=== PATIENT | female | born 1985 | race Caucasian/White ===

== ENCOUNTER 2019-09-15 21:33 | Emergency (ER) | payer OTHER ==
[~2019-09-15] VITALS: Ht 157.5 cm; Wt 40.1 kg
[2019-09-15] MEDS ORDERED: MIDAZOLAM INJ 2 MG/2 ML VIAL (J2250) As Ordered ONE ×2 (22:19→22:40)
[2019-09-15 22:31] LABS: BASO # 0.1 10^3/uL (0.0-0.2); BASO % 1.1 % (0.0-1.0); EOS % 0.4 % (0.0-3.0); HEMATOCRIT 39.4 % (36.0-47.0); HEMOGLOBIN 11.5 g/dl (12.0-15.5); LYMPH # 2.1 10^3/uL (1.5-5.0); LYMPH % 37.1 % (24.0-44.0); MEAN CORPUSCULAR HEMOGLOBIN 24.1 pg (27.0-33.0); MEAN CORPUSCULAR HGB CONC 29.2 g/dl (32.0-36.5); MEAN CORPUSCULAR VOLUME 82.4 fl (80.0-96.0); MONO # 0.8 10^3/uL (0.0-0.8); MONO % 14.6 % (0.0-5.0); NEUTROPHILS # 2.7 10^3/uL (1.5-8.5); NEUTROPHILS % 46.4 % (36.0-66.0); PLATELET COUNT, AUTOMATED 254 10^3/uL (150-450); RED BLOOD COUNT 4.78 10^6/uL (4.00-5.40); WHITE BLOOD COUNT 5.7 10^3/uL (4.0-10.0)
[2019-09-15 22:34] LABS: AMPHETAMINES LEVEL URINE NEGATIVE (NEGATIVE); BARBITURATES URINE NEGATIVE (NEGATIVE); BENZODIAZEPINES URINE NEGATIVE (NEGATIVE); CANNABINOIDS URINE NEGATIVE (NEGATIVE); COCAINE METABOLITE URINE NEGATIVE (NEGATIVE); METHADONE URINE NEGATIVE (NEGATIVE); OPIATES URINE NEGATIVE (NEGATIVE); PHENCYCLIDINE URINE NEGATIVE (NEGATIVE)
[2019-09-15] MEDS ORDERED: MIDAZOLAM INJ 2 MG/2 ML VIAL (J2250) IV STA ×4 (22:39→23:18)
[2019-09-15] MEDS ORDERED: NS 1,000 ML IV ONE (22:45)
[2019-09-15 22:50] LABS: HCG, SERUM QUALITATIVE NEGATIVE (NEGATIVE)
[2019-09-15 23:02] LABS: ACETAMINOPHEN LEVEL < 2.0 UG/ML (10.0-30.0); ALBUMIN 3.8 GM/DL (3.2-5.2); ALT/SGPT 55 U/L (12-78); BILIRUBIN,DIRECT 0.1 MG/DL (0.0-0.2); BILIRUBIN,TOTAL 0.4 MG/DL (0.2-1.0); BLOOD UREA NITROGEN 5 MG/DL (7-18); CALCIUM LEVEL 9.5 MG/DL (8.5-10.1); CARBON DIOXIDE LEVEL 26 MEQ/L (21-32); CHLORIDE LEVEL 100 MEQ/L (98-107); CK-MB VALUE MASS < 1.0 NG/ML (<3.6); CPK CREATINE PHOSPHOKINASE 39 U/L (26-192); CREATININE FOR GFR 0.72 MG/DL (0.55-1.30); ETHYL ALCOHOL (ETHANOL) 0.343 % (0.000-0.010); GLOMERULAR FILTRATION RATE > 60.0 (>60); GLUCOSE, FASTING 107 MG/DL (70-100); MB/CK RELATIVE INDEX 2.56 (< OR =4); POTASSIUM SERUM 3.3 MEQ/L (3.5-5.1); SALICYLATE LEVEL < 1.7 MG/DL (5.0-30.0); SODIUM LEVEL 142 MEQ/L (136-145); THYROID STIMULATING HORMONE 0.965 uIU/ML (0.358-3.740); TOTAL PROTEIN 7.3 GM/DL (6.4-8.2); TROPONIN I < 0.02 NG/ML (< 0.10)
[2019-09-15] MEDS ORDERED: LORazepam 2 MG TAB PO PRN (23:15)
--- NOTE | 2019-09-16 00:14 | REPVR ---
PROCEDURE INFORMATION: Exam: CT Head Without Contrast Exam date and time: 09/15/2019 9:41 PM Age: 34 years old Clinical history: Altered mental status/memory loss TECHNIQUE: Imaging protocol: Computed tomography of the head without contrast. Axial and coronal reformatted images were created and reviewed. Radiation optimization: All CT scans at this facility use at least one of these dose optimization techniques: automated exposure control; mA and/or kV adjustment per patient size (includes targeted exams where dose is matched to clinical indication); or iterative reconstruction. COMPARISON: CT Head without contrast 01/31/2015 2:35 AM FINDINGS: Brain: No CT evidence of acute intracranial hemorrhage or acute territorial infarction. No significant mass effect or midline shift. Basal cisterns patent. Ventricles: Prominence of the cortical sulci, cisterns and ventricular system, consistent with cerebral and cerebellar volume loss. Bones/joints: No acute osseous abnormality. Sinuses: Mild ethmoid mucosal thickening. Mastoid air cells: Grossly unremarkable. Soft tissues: Grossly unremarkable. IMPRESSION: 1. No CT evidence of acute intracranial pathology. 2. Additional findings, as above. Electronically signed by: Anthony Sarmiento On 09/16/2019 00:14:05 AM
[2019-09-16] MEDS ORDERED: METAL LOCK LOOP XX ONE (02:18)
[2019-09-16 04:03] VITALS: BP 108/60
[2019-09-16] MEDS ORDERED: MULTIVITAMINS/MINERALS THERAP 1 TAB PO SCH (09:00)
[2019-09-16] MEDS ORDERED: THIAMINE 100 MG TAB PO SCH (09:00)
[2019-09-16] MEDS ORDERED: FOLIC ACID 1 MG TAB PO SCH (09:00)
--- NOTE | 2019-09-16 22:05 | ECGEPIP ---
[facility] - ED Test Date: 2019-09-15 Pat Name: DORA MAN Department: Room: - Gender: Female Recenterer: sb : 1985 Requested By: Clifton Mccormack Order Number: [id number] Reading MD: Ana Lilia Henao Measurements Intervals [place] Rate: 111 P: 71 TN: 156 QRS: 51 QRSD: 89 T: 20 QT: 357 QTc: 486 Interpretive Statements SINUS TACHYCARDIA ABNORMAL RHYTHM ECG NSTTW abnormalities INCREASED RATE 02/01/15 Electronically Signed on 09-16-2019 22:04:57 EST by Ana Lilia Henao
== END 2019-09-16 04:08 | disposition home or self-care (01) ==
LOC: M ED 21:33 → EDBD 21:33 → M ED 09-16 04:08
DX: F10.120 Alcohol abuse with intoxication, uncomplicated (principal); R00.0 Tachycardia, unspecified; F32.9 Major depressive disorder, single episode, unspecified
CPT/HCPCS: 70450; 80048; 80076; 80307; 82550; 82553; 84443; 84484; 84703; 85025; 93005; 93041; 94760; 96374; 96376; 99285; G0480; J2250

== ENCOUNTER 2020-10-21 18:37 | Inpatient (IN) | payer OTHER ==
[~2020-10-21] VITALS: Ht 162.6 cm; Wt 41.6 kg
--- OUTSIDE RECORDS SUMMARY | 2020-10-21 18:44 | CCD ---
Author Author [facility] Organization [facility] Address Unknown Phone Unavailable Care Team Providers Care [employer] Specialist Name Role Phone Joi Lal MD Unavailable Unavailable Juan Luis Marcus NP Unavailable Unavailable Leeann Kearns MD Unavailable Unavailable Re-disclosure Warning The records that you are about to access may contain information from federally-assisted alcohol or drug abuse programs. If such information is present, then the following federally mandated warning applies: This information has been disclosed to you from records protected by federal confidentiality rules (42 CFR part 2). The federal rules prohibit you from making any further disclosure of this information unless further disclosure is expressly permitted by the written consent of the person to whom it pertains or as otherwise permitted by 42 CFR part 2. A general authorization for the release of medical or other information is NOT sufficient for this purpose. The Federal rules restrict any use of the information to criminally investigate or prosecute any alcohol or drug abuse patient.The records that you are about to access may contain highly sensitive health information, the redisclosure of which is protected by Article 27-F of the [facility] Public Health law. If you continue you may have access to information: Regarding HIV / AIDS; Provided by facilities licensed or operated by the [facility] Office of Mental Health; or Provided by the [facility] Office for People With Developmental Disabilities. If such information is present, then the following [facility] mandated warning applies: This information has been disclosed to you from confidential records which are protected by state law. State law prohibits you from making any further disclosure of this information without the specific written consent of the person to whom it pertains, or as otherwise permitted by law. Any unauthorized further disclosure in violation of state law may result in a fine or prison sentence or both. A general authorization for the release of medical or other information is NOT sufficient authorization for further disc losure. Encounters Encounter Providers Location Date Indications Data Source(s ) Inpatient Attender: Fany Lal MDAdmitter: Fany Lal MDReferrer: Ambrosio Kearns MDConsultant: Edmund Marcus NP [id number]-[id number] 12/18/2018 11:26:00 AM EDT - 12/20/2018 02:50:00 PM EDT [facility] Insurance Providers Payer name Policy type / Coverage type Policy ID Covered democrat ID Covered democrat's relationship to chappell Policy Chappell Plan Information 'S ADMINISTRATION [id number] SP [id number] [facility] [id number] Other [id number] 1 OTHER B [id number] Self [id number] [place] - NON VA CARE [id number] SP [id number] [place] - [place] CARE [id number] SP [id number] [facility] [id number] FA [id number] [facility] [id number] FA [id number] [facility] B [id number] Self [id number] OTHER B [id number] Self [id number]
--- OUTSIDE RECORDS SUMMARY | 2020-10-21 19:48 | CCD ---
Author Author [facility] Organization [facility] Address Unknown Phone Unavailable Care Team Providers Care Business Mail Entry Clerk Name Role Phone Joi Lal MD Unavailable [...] is protected by Article 27-F of the [facility] Public Health law. If you continue you may have access to information: Regarding HIV / AIDS; Provided by facilities licensed or operated by the [facility] Office of Mental Health; or Provided by the [facility] Office for People With Developmental Disabilities. If such information is present, then the following [facility] mandated warning applies: This information has [...] law may result in a fine or assisted sentence or both. A general authorization for the release of medical or other information is NOT sufficient authorization for further disc losure. Encounters Encounter Providers Location Date Indications Data Source(s ) Inpatient Attender: Fany Lal MDAdmitter: Fany Lal MDReferrer: Ambrosio Kearns MDConsultant: Edmund Marcus NP [id number] 12/18/2018 11:26:00 AM EDT - 12/20/2018 02:50:00 PM EDT [facility] Insurance Providers Payer name Policy type / Coverage type Policy ID Covered alliance party ID Covered alliance party's relationship to chappell Policy Chappell Plan Information 'S ADMINISTRATION [id number] SP [id number] [facility] [id number] Other [id number] 1 OTHER B [id number] Self [id number] [place] - NON VA CARE [id number] SP [id number] [place] - [place] CARE [id number] SP [id number] [facility] [id number] FA [id number] [facility] [id number] FA [id number] [facility] B [id number] Self [id number] OTHER B [id number] Self [id number]
[2020-10-21 20:19] LABS: BASO % 0.3 % (0.0-1.0); EOS # 0.1 10^3/uL (0.0-0.5); EOS % 0.8 % (0.0-3.0); LYMPH # 2.1 10^3/uL (1.5-5.0); LYMPH % 28.6 % (24.0-44.0); MEAN CORPUSCULAR HEMOGLOBIN 14.2 pg (27.0-33.0); MEAN CORPUSCULAR HGB CONC 23.9 g/dl (32.0-36.5); MEAN CORPUSCULAR VOLUME 59.6 fl (80.0-96.0); MONO # 0.8 10^3/uL (0.0-0.8); MONO % 10.8 % (0.0-5.0); NEUTROPHILS # 4.4 10^3/uL (1.5-8.5); NEUTROPHILS % 59.2 % (36.0-66.0); PLATELET COUNT, AUTOMATED 429 10^3/uL (150-450); RED BLOOD COUNT 3.02 10^6/uL (4.00-5.40); WHITE BLOOD COUNT 7.4 10^3/uL (4.0-10.0)
[2020-10-21 20:23] LABS: HEMOGLOBIN 4.3 g/dl (12.0-15.5)
[2020-10-21 20:30] LABS: INR 1.06
[2020-10-21 20:31] LABS: PARTIAL THROMBOPLASTIN TIME 29.7 SECONDS (24.2-38.5)
[2020-10-21 20:39] LABS: BLOOD UREA NITROGEN 15 MG/DL (7-18); CALCIUM LEVEL 8.7 MG/DL (8.5-10.1); CARBON DIOXIDE LEVEL 28 MEQ/L (21-32); CHLORIDE LEVEL 104 MEQ/L (98-107); CREATININE FOR GFR 0.64 MG/DL (0.55-1.30); GLOMERULAR FILTRATION RATE > 60.0 (>60); GLUCOSE, FASTING 101 MG/DL (70-100); POTASSIUM SERUM 4.3 MEQ/L (3.5-5.1); SODIUM LEVEL 141 MEQ/L (136-145)
--- NOTE | 2020-10-21 21:23 | HPEPDOC ---
[facility] Medical History & Physical Date of Admission Oct 21, 2020 Date of Service: Oct 21, 2020 Other Provider Elmo Fajardo MD Attending Physician: LELAND WONG MD History and Physical TIME OF SERVICE: 11:36 PM CHIEF COMPLAINT: Abnormal blood work HISTORY OF PRESENT ILLNESS: This 35-year-old had routine blood work [facility] today; shortly thereafter she received a phone call and was told to come to the hospital because her "red blood cell count was low." Because she doesn't have a car, her father who lives in [facility], drove to the area in order to transport her to the hospital. She has been feeling dizzy and short of breath especially when she walks. She denies having chest pain, feeling weaker than usual, vomiting blood, or having heavy menstrual cycles. Her last menstrual cycle was several months. Her weight has been stable over the last few months. Per Dr. Morse stool occult was negative in the ER & PRBCs have been ordered. REVIEW OF SYSTEMS: 12 point review of systems negative except as listed in HPI PAST MEDICAL/ SURGICAL HISTORY: Remote history of seizure disorder "Lung scar" Hx of Depression SOCIAL HISTORY: [place] Is on disability because of the "lung scar" Lives in a motel and uses a cooker to prepare most of her meals FAMILY HISTORY: She denies any family history of blood disorders ALLERGIES: Please see below. HOME MEDICATIONS: Please see below. PHYSICAL EXAMINATION: Vital Signs Date Time Temp Pulse Resp B/P (MAP) Pulse Ox O2 Delivery O2 Flow Rate FiO2 10/21/20 18:37 99.4 121 22 102/67 (79) 97 Room Air GEN: Slim build/ well developed/ NAD INTEGUMENT: has generalized palor HEENT: EOMI CVS: RRR/NMRG / radial pulses intact LUNGS: able to speak full sentences without stopping to take a breath / no coughing / lungs are clear to auscultation bilaterally on room air ABDOMEN: Contour (flat ) / soft & not tender with palpation MSK/EXTREMITIES: NCAT / range of motion intact in all 4 extremities NEURO: CN 2-12 are grossly intact / speech is not dysarthric PSYCH: alert and oriented to person place and time/ able to understand and follow all commands LABORATORY DATA: 10/21/20 20:06 Immature Granulocyte % (Auto) 0.3, Neutrophils (%) (Auto) 59.2, Lymphocytes (%) (Auto) 28.6, Monocytes (%) (Auto) 10.8H, Eosinophils (%) (Auto) 0.8, Basophils (%) (Auto) 0.3, Neutrophils # (Auto) 4.4, Lymphocytes # (Auto) 2.1, Monocytes # (Auto) 0.8, Eosinophils # (Auto) 0.1, Basophils # (Auto) 0.0, Nucleated Red Blood Cells % (auto) 0.0, Prothrombin Time 14.0, Prothromb Time International Ratio 1.06, Activated Partial Thromboplast Time 29.7, Anion Gap 9, Glomerular Filtration Rate > 60.0, Calcium Level 8.7 IMAGING: n/a MICROBIOLOGY: Please see below. ASSESSMENT: Ms. Ruiz is a 35-year-old was sent [place] [facility] for management of acute anemia. PLAN: 1. Acute hypochromic microcytic anemia. Suspect she has JOAO +/- copper deficiency due to malnutrition Plan: admit to medical floor / pending iron studies & confirmation that she doesn't have an infection, the day time team may consider starting Venofer / f/u retic #, serum copper & stool occult / will aim for Hg >7 2. SIRS Initial HR 121 & RR 22 Likely reactive Plan: f/u lactic acid / monitor vitals if she has a fever or leucocytosis will order blood cx 3. Protein calorie malnutrition Plan: business process engineer consult DVT PROPHYLAXIS: SCDs DISPOSITION: home after more than 2 midnight's stay /PFS consult has been placed for d/c planning Home Medications No Active Prescriptions or Reported Meds Allergies Coded Allergies: No Known Allergies (Unverified , 09/15/19) A-FIB/CHADSVASC A-FIB History Current/History of A-Fib/PAF?: No Current PO Anticoag Therapy: No LELAND WONG MD Oct 21, 2020 21:23
--- OUTSIDE RECORDS SUMMARY | 2020-10-21 21:29 | CCD ---
Author Author [facility] Organization [facility] Address Unknown Phone Unavailable Care Team Providers Care [facility] Professional Name Role Phone Joi Lal MD Unavailable [...] is protected by Article 27-F of the [facility] Public Health law. If you continue you may have access to information: Regarding HIV / AIDS; Provided by facilities licensed or operated by the [facility] Office of Mental Health; or Provided by the [facility] Office for People With Developmental Disabilities. If such information is present, then the following [facility] mandated warning applies: This information has [...] law may result in a fine or mcfp sentence or both. A general authorization for the release of medical or other information is NOT sufficient authorization for further disc losure. Encounters Encounter Providers Location Date Indications Data Source(s ) Inpatient Attender: Fany Lal MDAdmitter: Fany Lal MDReferrer: Ambrosio Kearns MDConsultant: Edmund Marcus NP [id number]-[id number] 12/18/2018 11:26:00 AM EDT - 12/20/2018 02:50:00 PM EDT [facility] Insurance Providers Payer name Policy type / Coverage type Policy ID Covered libertarian ID Covered libertarian's relationship to chappell Policy Chappell Plan Information 'S ADMINISTRATION [id number] SP [id number] [facility] [id number] Other [id number] 1 OTHER B [id number] Self [id number] VA - NON VA CARE [id number] SP [id number] [place] - NON VA CARE [id number] SP [id number] [facility] [id number] FA [id number] [facility] [id number] FA [id number] [facility] B [id number] Self [id number] OTHER B [id number] Self [id number]
[2020-10-21] MEDS ORDERED: MOM 30ML SUSPENSION UDC PO PRN (21:30)
[2020-10-21] MEDS ORDERED: ACETAMINOPHEN TAB 650MG DOSE (2X325MG) PO PRN (21:30)
[2020-10-21] MEDS ORDERED: MAALOX 30 ML SUSP *UDC PO PRN (21:30)
[2020-10-21 21:32] VITALS: BP 107/67
[2020-10-21 21:34] LABS: RSV AMPLIFICATION NEGATIVE (NEGATIVE)
[2020-10-21 21:49] VITALS: BP 112/68
[2020-10-21 22:17] LABS: FERRITIN 3 NG/ML (8-252); IRON (FE) 6 UG/DL (50-170); PERCENT SATURATION 1.3 % (13.2-45.0); TOTAL IRON BINDING CAPACITY 475 UG/DL (250-450)
[2020-10-21 22:26] LABS: FOLATE 7.3 NG/ML (>5.4); VITAMIN B12 LEVEL 454 PG/ML (247-911)
[2020-10-21 22:34] VITALS: BP 111/66
[2020-10-21 23:11] VITALS: BP 104/64
[2020-10-21 23:27] VITALS: BP 101/59
[2020-10-22] VITALS (12 sets, daily range): BP systolic 94–124; BP diastolic 57–84
[2020-10-22 10:10] LABS: HEMATOCRIT 33.8 % (36.0-47.0); MEAN CORPUSCULAR HEMOGLOBIN 21.9 pg (27.0-33.0); MEAN CORPUSCULAR HGB CONC 30.5 g/dl (32.0-36.5); MEAN CORPUSCULAR VOLUME 71.9 fl (80.0-96.0); WHITE BLOOD COUNT 6.3 10^3/uL (4.0-10.0)
[2020-10-22 10:19] LABS: HEMOGLOBIN 10.3 g/dl (12.0-15.5); PLATELET COUNT, AUTOMATED 295 10^3/uL (150-450)
[2020-10-22 10:36] LABS: BLOOD UREA NITROGEN 11 MG/DL (7-18); CALCIUM LEVEL 8.3 MG/DL (8.5-10.1); CARBON DIOXIDE LEVEL 25 MEQ/L (21-32); CHLORIDE LEVEL 109 MEQ/L (98-107); CREATININE FOR GFR 0.69 MG/DL (0.55-1.30); GLOMERULAR FILTRATION RATE > 60.0 (>60); GLUCOSE, FASTING 99 MG/DL (70-100); POTASSIUM SERUM 4.1 MEQ/L (3.5-5.1); SODIUM LEVEL 140 MEQ/L (136-145)
[2020-10-22] MEDS ORDERED: IRON SUCROSE 100MG 5ML VIAL (J1756 PER 1MG) IV SCH (12:30)
[2020-10-22] MEDS: PANTOPRAZOLE 40MG TAB (PROTONIX) PO SCH ×2 (13:01→20:45)
--- NOTE | 2020-10-22 13:18 | IPNPDOC ---
Text Note Date of Service The patient was seen on 10/22/20. NOTE Subjective: Patient seen and examined at bedside. She notes intermittent dysphagia, no clear correlation with any instigating foods or factors. She is somewhat poor historian. She also denies any vaginal bleeding, stating she has not had a period in over a year. She also notes fatigue, malaise. Objective: General: NAD, lying comfortably in bed HEENT: NC/AT, EOMI, PERRL Lungs; CTA B/L Heart: +S1S2, RRR Abd: soft, NT, +BS Ext: no edema A/P: 35 female comes to hospital after found to be anemic during routine blood work at [place]. Admitted for symptomatic anemia. Found to be severely iron deficient. #symptomatic anemia - transfuse PRBC - severe iron deficiency - transfuse IV iron - d/w hematology - c/s pending - further w/u pending - thyroid profile, liver profile, LDH, haptoglobin, stool occult blood #eval for bleed/mass - ct chest/abd/pelvis pending - notes dyphagia - gi c/s pending for EGD/colonoscopy - clear liquid diet for now #Protein calorie malnutrition - supplier quality manager consult #DVT prophylaxis - mechanical VS,Fishbone, I+O VS, Fishbone, I+O Laboratory Tests 10/21/20 20:06 10/22/20 01:04 10/22/20 09:58 10/22/20 11:53 Vital Signs Date Time Temp Pulse Resp B/P (MAP) Pulse Ox O2 Delivery O2 Flow Rate FiO2 10/22/20 08:55 98.7 82 16 124/79 100 Room Air I&O- Last 24 Hours up to 6 AM 10/22/20 06:00 Intake Total 915 ml Output Total 0 ml Balance 915 ml NICK HERNANDEZ MD Oct 22, 2020 13:18
--- NOTE | 2020-10-22 13:51 | REP ---
INDICATION: EVAL BLEED. COMPARISON: None. TECHNIQUE: CT chest performed without the use of intravenous contrast. Sagittal and coronal reconstruction images are performed. FINDINGS: Lungs: There is mild diffuse bronchiectasis bilaterally. Mild scattered increased interstitial markings bilaterally may be acute or chronic. Mediastinum: No gross adenopathy. There is a mild to moderate hiatal hernia. There are hazy densities in the posterior mediastinum surrounding the hiatal hernia and distal esophagus with possible thickening. This may represent gastroesophagitis. Teresa: No gross adenopathy. Axilla: No gross adenopathy. Pleura: No effusion. Heart: Not enlarged. Thoracic aorta: No aneurysm. Visualized osseous structures: Mild compression deformity is noted of T6 which appears old. IMPRESSION: Mild diffuse bronchiectasis. Mild diffuse increased interstitial markings may represent acute pneumonitis or chronic fibrotic change. Mild to moderate size hiatal hernia. Streaky densities in the adjacent posterior mediastinum with possible thickening at the gastroesophageal junction raise the possibility of inflammation and gastroesophagitis at this location. <Electronically signed by Mian Wolfe > 10/22/20 [id number]
[2020-10-22] MEDS: IRON SUCROSE 100 MG in NS 100 ML OVER 1 HR IV SCH (15:13)
--- NOTE | 2020-10-22 15:25 | REP ---
INDICATION: EVAL BLEED COMPARISON: None. TECHNIQUE: CT Scan of the abdomen and pelvis was performed without intravenous contrast. Sagittal and coronal reconstruction images performed. FINDINGS: Lung bases: There is mild to moderate sized hiatal hernia. Gastroesophageal junction appears somewhat thickened with surrounding streaky densities, possibly indicating gastroesophagitis. Liver: There is a cyst in the right lobe of the liver 4.3 cm in diameter. Gallbladder: Collapsed.. Spleen: Grossly unremarkable.. Adrenals: Normal. Pancreas: Grossly unremarkable.. Kidneys: No hydronephrosis or nephrolithiasis. Ureters demonstrate no dilatation or calculus. Small and large bowel: Grossly unremarkable.. Free fluid: There is a small amount of free fluid in pelvis. Abdominal aorta: No aneurysm. Adenopathy: None. Appendix: Not inflamed. Osseous structures: There is a benign cystic structure in the right femoral neck with a thin sclerotic border 2 cm in diameter. Focal somewhat ill-defined sclerotic density in the left iliac bone near the sacroiliac joint may represent an enchondroma. Pelvis: No mass. No bladder calculus seen. IMPRESSION: There is mild to moderate sized hiatal hernia. Gastroesophageal junction appears somewhat thickened with surrounding streaky densities, possibly indicating gastroesophagitis. Small amount of free fluid in the pelvis. No free air or bowel obstruction. <Electronically signed by Mian Wolfe > 10/22/20 [id number]
[2020-10-22 16:28] LABS: ALBUMIN 3.3 GM/DL (3.2-5.2); ALT/SGPT 13 U/L (12-78); BILIRUBIN,DIRECT 0.4 MG/DL (0.0-0.2); BILIRUBIN,TOTAL 1.6 MG/DL (0.2-1.0); FREE THYROXINE INDEX 2.5 % (1.3-4.8); LDH LACTATE DEHYDROGENASE 112 U/L (84-246); T UPTAKE 36 % (30-39); THYROXINE (T4) 6.9 UG/DL (4.5-12.0); TOTAL PROTEIN 5.8 GM/DL (6.4-8.2)
[2020-10-22 19:22] LABS: HEMATOCRIT 35.2 % (36.0-47.0); HEMOGLOBIN 10.7 g/dl (12.0-15.5)
[2020-10-22] MEDS ORDERED: BISACODYL 5 MG TAB PO ONE (20:30)
[2020-10-22] MEDS ORDERED: GOLYTELY SOLN 4000 ML BTL PO ONE (20:30)
[2020-10-23 05:58] VITALS: BP 107/68
[2020-10-23 07:20] LABS: BASO % 0.8 % (0.0-1.0); EOS # 0.1 10^3/uL (0.0-0.5); EOS % 2.6 % (0.0-3.0); HEMATOCRIT 37.8 % (36.0-47.0); LYMPH % 38.8 % (24.0-44.0); MEAN CORPUSCULAR HEMOGLOBIN 21.5 pg (27.0-33.0); MEAN CORPUSCULAR HGB CONC 29.1 g/dl (32.0-36.5); MEAN CORPUSCULAR VOLUME 73.8 fl (80.0-96.0); MONO # 0.7 10^3/uL (0.0-0.8); MONO % 13.6 % (0.0-5.0); NEUTROPHILS # 2.2 10^3/uL (1.5-8.5); PLATELET COUNT, AUTOMATED 285 10^3/uL (150-450); RED BLOOD COUNT 5.12 10^6/uL (4.00-5.40); WHITE BLOOD COUNT 5.1 10^3/uL (4.0-10.0)
[2020-10-23 07:59] LABS: ALBUMIN 3.5 GM/DL (3.2-5.2); ALT/SGPT 15 U/L (12-78); BILIRUBIN,TOTAL 1.5 MG/DL (0.2-1.0); BLOOD UREA NITROGEN 5 MG/DL (7-18); CALCIUM LEVEL 8.8 MG/DL (8.5-10.1); CARBON DIOXIDE LEVEL 25 MEQ/L (21-32); CHLORIDE LEVEL 111 MEQ/L (98-107); CREATININE FOR GFR 0.73 MG/DL (0.55-1.30); GLOMERULAR FILTRATION RATE > 60.0 (>60); GLUCOSE, FASTING 94 MG/DL (70-100); POTASSIUM SERUM 4.1 MEQ/L (3.5-5.1); SODIUM LEVEL 142 MEQ/L (136-145); TOTAL PROTEIN 6.1 GM/DL (6.4-8.2)
[2020-10-23] MEDS: PANTOPRAZOLE 40MG TAB (PROTONIX) PO SCH ×2 (08:38→21:13)
[2020-10-23] MEDS ORDERED: ALBUTEROL SULFATE 2.5 MG/0.5 ML INH NEB SOLN As Ordered ONE (11:45)
[2020-10-23] MEDS ORDERED: propofoL 200 MG/20 ML VIAL As Ordered ONE (11:59)
[2020-10-23] MEDS ORDERED: LIDOCAINE 2% 100MG/5ML SDV (FOR ANES.) As Ordered ONE (12:01)
[2020-10-23] MEDS ORDERED: fentaNYL 100 MCG/2 ML INJECTION (J3010) As Ordered ONE (12:02)
[2020-10-23] MEDS ORDERED: ALBUTEROL SULFATE 2.5 MG/0.5 ML INH NEB SOLN INH ONE (12:15)
[2020-10-23] MEDS ORDERED: MIDAZOLAM INJ 2MG/2ML VIAL (J2250 PER 1MG) As Ordered ONE (12:40)
[2020-10-23] MEDS ORDERED: ONDANSETRON 4MG/2ML VIAL As Ordered ONE (12:40)
--- NOTE | 2020-10-23 12:48 | IPNPDOC ---
Text Note Date of Service The patient was seen on 10/23/20. NOTE Subjective: Patient seen and examined at bedside. No acute overnight events reported. No new medical complaints this morning. Objective: General: NAD, lying comfortably in bed HEENT: NC/AT, EOMI, PERRL Lungs; CTA B/L Heart: +S1S2, RRR Abd: soft, NT, +BS Ext: no edema A/P: 35 female comes to hospital after found to be anemic during routine blood work at [place]. Admitted for symptomatic anemia. Found to be severely iron deficient. #symptomatic anemia - transfused 4 units PRBC - severe iron deficiency - transfusing IV iron day #2 - one more day to complete 3 infusions - discharge with PO - prefer liquid or crushable formulation - d/w hematology - c/s appreciated - no obvious signs bleeding - patient states has not had menstrual cycle in about a year, no evidence bleeding on imaging #dysphagia/severe esophagitis - d/w gi - EGD/colonoscopy completed - severe esophagitis, strictures and ulcerations - no active bleeding - biopsy for possible Lopez's - PPI BID, sucralfate, - patient today notes history of bulimia #Protein calorie malnutrition #DVT prophylaxis - mechanical VS,Fishbone, I+O VS, Fishbone, I+O Laboratory Tests 10/22/20 19:04 10/23/20 07:01 Vital Signs Date Time Temp Pulse Resp B/P (MAP) Pulse Ox O2 Delivery O2 Flow Rate FiO2 10/23/20 05:58 98.1 65 18 107/68 (81) 95 Room Air I&O- Last 24 Hours up to 6 AM 10/23/20 05:59 Intake Total 1220 ml Output Total 1150 ml Balance 70 ml NICK HERNANDEZ MD Oct 23, 2020 12:48
[2020-10-23] MEDS ORDERED: ONDANSETRON 4MG/2ML VIAL IV PRN (13:30)
[2020-10-23] MEDS ORDERED: fentaNYL 100 MCG/2 ML INJECTION (J3010) IV PRN (13:30)
[2020-10-23] MEDS ORDERED: HYDROMORPHONE HCL 0.5 MG/ 0.5 ML SYRINGE (J1170 PER 1) IV PRN (13:30)
[2020-10-23] MEDS ORDERED: LR 1,000 ML IV SCH (13:30)
[2020-10-23 14:00] VITALS: BP 135/92
--- NOTE | 2020-10-23 14:03 | ROOR ---
Patient Name: Aysha Ruiz Procedure Date: 10/23/2020 12:05 PM Date of : 1985 Age: 35 Gender: Female Note Status: Finalized Procedure: Upper GI endoscopy Indications: Acute post hemorrhagic anemia, Dyspepsia Providers: Anton Mayorga MD Referring MD: Matheus Dalal MD, 2. Inpatient 2. Inpatient Requesting Provider: Medicines: Monitored Anesthesia Care Complications: No immediate complications. Procedure: Pre-Anesthesia Assessment: - Prior to the procedure, a History and Physical was performed, and patient medications and allergies were reviewed. The patient is competent. The risks and benefits of the procedure and the sedation options and risks were discussed with the patient. All questions were answered and informed consent was obtained. Patient identification and proposed procedure were verified by the physician, the nurse and the anesthesiologist in the procedure room. Mental Status Examination: alert and oriented. Airway Examination: normal oropharyngeal airway and neck mobility. Respiratory Examination: clear to auscultation. CV Examination: normal. Prophylactic Antibiotics: The patient does not require prophylactic antibiotics. Prior Anticoagulants: The patient has taken no previous anticoagulant or antiplatelet agents. ASA Grade Assessment: II - A patient with mild systemic disease. After reviewing the risks and benefits, the patient was deemed in satisfactory condition to undergo the procedure. The anesthesia plan was to use monitored anesthesia care (MAC). Immediately prior to administration of medications, the patient was re-assessed for adequacy to receive sedatives. The heart rate, respiratory rate, oxygen saturations, blood pressure, adequacy of pulmonary ventilation, and response to care were monitored throughout the procedure. The physical status of the patient was re-assessed after the procedure. The Endoscope was introduced through the mouth, and advanced to the second part of duodenum. The upper GI endoscopy was accomplished without difficulty. The patient tolerated the procedure well. Findings: LA Grade D (one or more mucosal breaks involving at least 75% of esophageal circumference) esophagitis was found 36 to 41 cm from the incisors along with associated esophageal stenosis from 39-41cm. Biopsies were taken with a cold forceps for histology. A TTS dilator was passed through the scope. Dilation with a 10-11-12 mm balloon dilator was performed to 12 mm. The dilation site was examined following endoscope reinsertion and showed mild mucosal disruption, moderate improvement in luminal narrowing and no perforation. Verification of patient identification for the specimen was done by the physician and nurse using the patient's name, date and medical record number. Estimated blood loss was minimal. No gross lesions were noted in the entire examined stomach. The duodenal bulb and second portion of the duodenum were normal. Impression: - LA Grade D reflux esophagitis. Rule out Lopez's esophagus. Biopsied. Dilated. - No gross lesions in the stomach. - Normal duodenal bulb and second portion of the duodenum. Recommendation: - Patient has a contact number available for emergencies. The signs and symptoms of potential delayed complications were discussed with the patient. Return to normal activities tomorrow. Written discharge instructions were provided to the patient. - Advance diet as tolerated. - Chopped diet and mechanical soft diet. - Continue present medications. - Use Protonix (pantoprazole) 40 mg PO twice daily - to be taken in morning (1/2 hour before breakfast) and at bedtime ( atleast 3 hours after last meal) for 3 months. - Use sucralfate suspension 1 gram PO QID for 6 weeks. - Await pathology results. - Telephone GI clinic for pathology results in 2 weeks. - Return to GI clinic in [facility] (address [address], [address], [place], [address]) in 4 -- 6 weeks. Please call GI clinic @ [phone] for apppointment date and time. - Return to primary care physician. Procedure Code(s): --- Professional --- 44304, Esophagogastroduodenoscopy, flexible, transoral; with transendoscopic balloon dilation of esophagus (less than 30 mm diameter) 51982, 59, Esophagogastroduodenoscopy, flexible, transoral; with biopsy, single or multiple Diagnosis Code(s): --- Professional --- K21.0, Gastro-esophageal reflux disease with esophagitis D62, Acute posthemorrhagic anemia R10.13, Epigastric pain CPT copyright 2019 [employer]. All rights reserved. The codes documented in this report are preliminary and upon advanced nursing professor review may be revised to meet current compliance requirements. Anton Mayorga MD Anton Mayorga MD 10/23/2020 2:03:26 PM Electronically signed by Anton Mayorag MD Number of Addenda: 0 Note Initiated On: 10/23/2020 12:05 PM Estimated Blood Loss: Estimated blood loss was minimal.
--- NOTE | 2020-10-23 14:13 | ROOR ---
Patient Name: Aysha Ruiz Procedure Date: 10/23/2020 12:03 PM Date of : 1985 Age: 35 Gender: Female Note Status: Finalized Procedure: Colonoscopy Indications: Acute post hemorrhagic anemia Providers: Anton Mayorga MD Referring MD: Matheus Dalal MD, 2. Inpatient 2. Inpatient Requesting Provider: Medicines: Monitored Anesthesia Care Complications: No immediate complications. Procedure: Pre-Anesthesia Assessment: - Prior to the procedure, a History and Physical was performed, and patient medications and allergies were reviewed. The patient is competent. The risks and benefits of the procedure and the sedation options and risks were discussed with the patient. All questions were answered and informed consent was obtained. Patient identification and proposed procedure were verified by the physician, the nurse and the anesthesiologist in the procedure room. Mental Status Examination: alert and oriented. Airway Examination: normal oropharyngeal airway and neck mobility. Respiratory Examination: clear to auscultation. CV Examination: normal. Prophylactic Antibiotics: The patient does not require prophylactic antibiotics. Prior Anticoagulants: The patient has taken no previous anticoagulant or antiplatelet agents. ASA Grade Assessment: II - A patient with mild systemic disease. After reviewing the risks and benefits, the patient was deemed in satisfactory condition to undergo the procedure. The anesthesia plan was to use monitored anesthesia care (MAC). Immediately prior to administration of medications, the patient was re-assessed for adequacy to receive sedatives. The heart rate, respiratory rate, oxygen saturations, blood pressure, adequacy of pulmonary ventilation, and response to care were monitored throughout the procedure. The physical status of the patient was re-assessed after the procedure. The Colonoscope was introduced through the anus and advanced to the terminal ileum, with identification of the appendiceal orifice and IC valve. The colonoscopy was performed without difficulty. The patient tolerated the procedure well. The quality of the bowel preparation was good. The terminal ileum, ileocecal valve, appendiceal orifice, and rectum were photographed. Scope insertion time was 2 minutes. Scope withdrawal time was 9 minutes. The total duration of the procedure was 12 minutes. Findings: The perianal and digital rectal examinations were normal. The terminal ileum appeared normal. A 12 mm polyp was found in the recto-sigmoid colon. The polyp was sessile. The polyp was removed with a hot snare. Resection and retrieval were complete. Verification of patient identification for the specimen was done by the physician and nurse using the patient's name, date and medical record number. Estimated blood loss was minimal. Non-bleeding external and internal hemorrhoids were found during retroflexion. The hemorrhoids were small. The exam was otherwise without abnormality on direct and retroflexion views. Impression: - The examined portion of the ileum was normal. - One 12 mm polyp at the recto-sigmoid colon, removed with a hot snare. Resected and retrieved. - Non-bleeding external and internal hemorrhoids. - The examination was otherwise normal on direct and retroflexion views. Recommendation: - Patient has a contact number available for emergencies. The signs and symptoms of potential delayed complications were discussed with the patient. Return to normal activities tomorrow. Written discharge instructions were provided to the patient. - Chopped diet, mechanical soft diet and high fiber diet. - Anti-acid reflux diet -- small meals, sit upright atleast 1 hour after meals, avoid fatty/ oily foods and avoid foods that cause reflux. - Continue present medications. - Await pathology results. - Repeat colonoscopy in 3 years for surveillance based on pathology results. - Telephone GI clinic for pathology results in 2 weeks. - Return to primary care physician. - Follow the recommendations as per the other procedure note. Procedure Code(s): --- Professional --- 87120, Colonoscopy, flexible; with removal of tumor(s), polyp(s), or other lesion(s) by snare technique Diagnosis Code(s): --- Professional --- K64.8, Other hemorrhoids K63.5, Polyp of colon D62, Acute posthemorrhagic anemia CPT copyright 2019 [employer]. All rights reserved. The codes documented in this report are preliminary and upon seo manager review may be revised to meet current compliance requirements. Anton Mayorga MD Anton Mayorga MD 10/23/2020 2:12:41 PM Electronically signed by Anton Mayorga MD Number of Addenda: 0 Note Initiated On: 10/23/2020 12:03 PM Estimated Blood Loss: Estimated blood loss: none.
[2020-10-23] MEDS: IRON SUCROSE 100 MG in NS 100 ML OVER 1 HR IV SCH (15:39)
--- NOTE | 2020-10-23 15:46 | CR.PDOC ---
General Date of Consultation: Oct 23, 2020 Referring Provider: NICK HERNANDEZ MD Primary Care Physician: A Attending Physician: NICK HERNANDEZ MD Consultation REASON FOR CONSULTATION/CHIEF COMPLAINT: Anemia. HISTORY OF PRESENT ILLNESS: Ms. Aysha Ruiz is a 35-year-old woman who was found to have significant anemia [facility]. [facility] sent to [facility] ER where initial hemoglobin level was at 4.3 G/DL. She has been transfused a total of 4 units packed red cells with improvement in hemoglobin level. Today's hemoglobin level at 11 G/DL. Ferritin level prior to blood transfusion was significantly low at 3 NG/ML. Ms. Ruiz reports that she has never had a blood transfusion prior to this admission. She also does not recall taking iron supplements. She also does not recall being diagnosed with anemia previously. On review of her [facility] records, she had mild anemia in the past with lowest hemoglobin level of 11.5 G/DL on 08/2019. She reports no easy bruising and no bleeding issues in general. Her menstrual cycles have been irregular since menarche with no heavy menstrual cycle bleeding, although she has not had a menstrual cycle for the past 9 katie hs. She reports shortness of breath on exertion. No ice pica. No restless legs. ALLERGIES: Please see below. HOME MEDICATIONS: Please see below. PAST MEDICAL HISTORY: Seizure disorder. Multiple visits to [facility] ER for alcohol intoxication. FAMILY HISTORY: No history of blood disorder or cancer. SOCIAL HISTORY: Does not smoke. Drinks alcohol daily. Single. Currently on disability. Review of systems: 14 point review of systems negative except as noted in HPI. PHYSICAL EXAMINATION: VITAL SIGNS: Please see below. GENERAL APPEARANCE: Awake, alert, lying comfortably in bed, not in distress, answered questions appropriately. HEENT: Atraumatic. Pinkish conjunctiva. Anicteric. Moist oral mucosa. No palpable cervical lymph nodes. RESPIRATORY: Lungs are clear. No rales, rhonchi, no wheeze. CARDIOVASCULAR: S1, S2 regular. No murmur. No gallop. ABDOMEN: Soft, nontender, no guarding, no palpable masses. No hepatosplenomegaly. EXTREMITIES: No calf swelling, no calf tenderness and no pedal edema. NEUROLOGICAL: Alert, moved upper and lower extremity spontaneously. PSYCHIATRIC: No anxiety. LABORATORY DATA: Please see below. ASSESSMENT/PLAN: Anemia with iron studies diagnostic of iron deficiency, etiology unclear, though may be partly related to hiatal hernia and/or nutrition. CT abdomen and pelvis 10/22/2020 showed a mild to moderate sized hiatal hernia. Gastroesophageal junction deemed to appear somewhat thickened with surrounding streaky densities, possibly indicating gastroesophagitis. Small amount of free fluid in the pelvis. No free air or bowel obstruction. Upper endoscopy 10/23/2020 showed esophagitis. Esophageal biopsy results pending at this time. Colonoscopy 10/23/2020 revealed a rectosigmoid colon polyp. Pathology results pending at this time. Haptoglobin results pending at this time. LDH normal. Agree with intravenous iron replacement. Additional GI workup can be done as an outpatient, but will defer to Dr. Mayorga regarding further workup. If patient is discharged shortly, will arrange follow up with me as an outpatient, although this would have to be approved by the [place]. Thank you for referring Ms. Aysha Ruiz. Vital Signs/I&O Vital Signs Date Time Temp Pulse Resp B/P (MAP) Pulse Ox O2 Delivery O2 Flow Rate FiO2 10/23/20 14:00 96.8 106 16 135/92 (106) 99 Room Air I&O- Last 24 Hours up to 6 AM 10/23/20 06:00 Intake Total 1220 ml Output Total 1150 ml Balance 70 ml Laboratory Data Labs 24H Laboratory Tests 2 10/22/20 19:04: 10/23/20 07:01: Immature Granulocyte % (Auto) 0.2, Neutrophils (%) (Auto) 44.0, Lymphocytes (%) (Auto) 38.8, Monocytes (%) (Auto) 13.6H, Eosinophils (%) (Auto) 2.6, Basophils (%) (Auto) 0.8, Neutrophils # (Auto) 2.2, Lymphocytes # (Auto) 2.0, Monocytes # (Auto) 0.7, Eosinophils # (Auto) 0.1, Basophils # (Auto) 0.0, Nucleated Red Blood Cells % (auto) 0.0, Anion Gap 6L, Glomerular Filtration Rate > 60.0, Calcium Level 8.8, Total Bilirubin 1.5H, Aspartate Amino Transf (AST/SGOT) 7, Alanine Aminotransferase (ALT/SGPT) 15, Alkaline Phosphatase 62, Total Protein 6.1L, Albumin 3.5, Albumin/Globulin Ratio 1.3 CBC/BMP Laboratory Tests 10/22/20 19:04 10/23/20 07:01 Microbiology Microbiology 10/22/20 Stool Occult Blood (DANIEL) - Final, Complete Allergies Coded Allergies: No Known Allergies (Unverified , 09/15/19) Home Medications No Active Prescriptions or Reported Meds BRENNAN RICK MD Oct 23, 2020 15:46
[2020-10-23] MEDS: SUCRALFATE SUSP 1GM/10ML UD PO SCH ×2 (18:20→21:13)
[2020-10-23 21:16] VITALS: BP 124/84
[2020-10-24 06:00] VITALS: BP 123/75
[2020-10-24 07:49] LABS: HEMOGLOBIN 11.3 g/dl (12.0-15.5); MEAN CORPUSCULAR HEMOGLOBIN 21.5 pg (27.0-33.0); MEAN CORPUSCULAR VOLUME 74.1 fl (80.0-96.0); PLATELET COUNT, AUTOMATED 260 10^3/uL (150-450); RED BLOOD COUNT 5.26 10^6/uL (4.00-5.40); WHITE BLOOD COUNT 6.4 10^3/uL (4.0-10.0)
[2020-10-24 08:15] LABS: ALBUMIN 3.2 GM/DL (3.2-5.2); ALT/SGPT 13 U/L (12-78); BILIRUBIN,TOTAL 0.5 MG/DL (0.2-1.0); BLOOD UREA NITROGEN 8 MG/DL (7-18); CALCIUM LEVEL 8.8 MG/DL (8.5-10.1); CARBON DIOXIDE LEVEL 25 MEQ/L (21-32); CHLORIDE LEVEL 110 MEQ/L (98-107); CREATININE FOR GFR 0.77 MG/DL (0.55-1.30); GLOMERULAR FILTRATION RATE > 60.0 (>60); GLUCOSE, FASTING 99 MG/DL (70-100); SODIUM LEVEL 142 MEQ/L (136-145); TOTAL PROTEIN 5.8 GM/DL (6.4-8.2)
[2020-10-24] MEDS: SUCRALFATE SUSP 1GM/10ML UD PO SCH ×2 (08:18→12:39)
[2020-10-24] MEDS: PANTOPRAZOLE 40MG TAB (PROTONIX) PO SCH (08:18)
[2020-10-24] MEDS ORDERED: PROT1TAB2 PO (08:37)
--- NOTE | 2020-10-24 11:11 | DSES ---
DISCHARGE SUMMARY DATE OF ADMISSION: 10/21/2020 DATE OF DISCHARGE: 10/24/2020 PRINCIPAL DIAGNOSIS: Severe iron deficiency anemia. HISTORY: Ms. Ruiz is a patient of the [facility] ([place]) clinic. She presented with severe anemia. Hemoglobin was 4.3. She was transfused 4 units of packed red blood cells and admitted for observation. HOSPITAL COURSE: She was seen by hematology/oncology. They noted anemia of iron deficiency. Review of CT abdomen and pelvis that showed some possible esophagitis. Upper endoscopy was performed on October 23, 2020 and showed esophagitis. Colonoscopy showed a polyp. There was no active bleeding seen. Patient received intravenous iron infusions on two separate days. She will receive one later on this afternoon. Plans for discharge after that is completed. On day of discharge, she is resting comfortably and wants to go home. Her vital signs are stable. LUNGS: Clear. ABDOMEN: Soft, nontender. No peripheral edema. LABORATORY DATA: White count 6.4, hemoglobin 11.3, it has been stable for the last three days, platelets 260. Sodium 142, potassium 4, BUN 8, creatinine 0.7, glucose 99. B12 and folate were normal. TSH was normal. LDH is normal. Haptoglobin is normal. Iron studies were consistent with anemia of iron deficiency. Ferritin was very low at 3. Total iron binding capacity (TIBC) high at 475. Reticulocyte hemoglobin equivalent was quite low at 16. DISPOSITION: She is discharged home after she receives iron transfusion later today. She will follow up with the [place] clinic. She has an appointment October 26, 2020. She has received sufficient iron. She is not discharged on an iron supplement. She will need followup iron studies done through the [place]. Activity as tolerated. Diet as tolerated. Followup at the [place] clinic is already scheduled in two days. DISCHARGE MEDICATIONS: - Protonix 40 mg daily.
[2020-10-24] MEDS: IRON SUCROSE 100 MG in NS 100 ML OVER 1 HR IV SCH (14:07)
== END 2020-10-24 17:15 | disposition home or self-care (01) | DRG 812 ==
LOC: M ED 18:37 → M ED INP 21:18 → ENRESERV 22:36 → M MS5PR 23:20
PROVIDERS: ADMIT Internal Medicine; ATTEND Family Medicine
PROC: 30233N1 Transfusion of Nonautologous Red Blood Cells into Peripheral Vein, Percutaneous Approach (ICD-10-PCS; 2020-10-21)
PROC: 0DBN8ZX Excision of Sigmoid Colon, Via Natural or Artificial Opening Endoscopic, Diagnostic (ICD-10-PCS; 2020-10-23)
PROC: 0D758DZ Dilation of Esophagus with Intraluminal Device, Via Natural or Artificial Opening Endoscopic (ICD-10-PCS; 2020-10-23)
PROC: 0DB38ZX Excision of Lower Esophagus, Via Natural or Artificial Opening Endoscopic, Diagnostic (ICD-10-PCS; principal; 2020-10-23 11:00)
DX: D50.9 Iron deficiency anemia, unspecified (principal); E46 Unspecified protein-calorie malnutrition; K21.00 Gastro-esophageal reflux disease with esophagitis, without bleeding; D12.7 Benign neoplasm of rectosigmoid junction; J98.4 Other disorders of lung; R13.10 Dysphagia, unspecified; K64.8 Other hemorrhoids; K64.4 Residual hemorrhoidal skin tags

== ENCOUNTER → 2023-01-15 | Outpatient (REF) ==
[~2023-01-15] MED LIST: PROT1TAB2 PO
== END ==
LOC: M LAB 09:23